=== PATIENT | female | born 1985 | race Caucasian/White ===

== ENCOUNTER 2017-08-04 14:15 | Outpatient (CLI) | payer BC | END 2017-08-04 20:05 | disposition home or self-care (01) | LOC: SRD 14:15 | PROVIDERS: ATTEND Specialist | DX: I71.4 Abdominal aortic aneurysm, without rupture (principal); J98.11 Atelectasis; I87.8 Other specified disorders of veins; M47.899 Other spondylosis, site unspecified; Z98.84 Bariatric surgery status ==